=== PATIENT | male | born 1980 | race Two or more races ===

== ENCOUNTER 2019-04-16 09:22 | Emergency (ER) | payer MEDICAID ==
[~2019-04-16] VITALS: Ht 170.2 cm; Wt 86.4 kg
[~2019-04-16 09:22] MED LIST: ALBU18HF2 INH; LEVO500T2 PO; NO HOME MEDS
[2019-04-16] MEDS ORDERED: CefTRIAXone 1000mg IM Kit (w/lidocaine diluent) IM ONE (09:55)
[2019-04-16] MEDS ORDERED: LIDOcaine 1% w/epiNEPHrine 1:200,000 30ml vial IM ONE (09:55)
[2019-04-16] MEDS ORDERED: TETanus/Pertussis (Acell)/Diphther VAC/PF (Tdap-Adult) 0.5ml syringe IM ONE (09:55)
[2019-04-16] MEDS ORDERED: HYDR-4383 PO (10:26)
[2019-04-16] MEDS ORDERED: CEPH250T PO (10:26)
[2019-04-16] MEDS ORDERED: DOXY100C43 PO (10:26)
[2019-04-16 10:47] VITALS: BP 109/61
== END 2019-04-16 10:53 | disposition home or self-care (01) ==
LOC: ER 09:23
DX: S80.11XA Contusion of right lower leg, initial encounter (principal); L02.415 Cutaneous abscess of right lower limb; L03.115 Cellulitis of right lower limb; E11.9 Type 2 diabetes mellitus without complications; Z56.0 Unemployment, unspecified; Z79.899 Other long term (current) drug therapy; W57.XXXA Bitten or stung by nonvenomous insect and other nonvenomous arthropods, initial encounter; Y93.89 Activity, other specified; Y92.89 Other specified places as the place of occurrence of the external cause; Y99.8 Other external cause status
CPT/HCPCS: 10060; 90471; 90715; 96372; 99283; J0696